=== PATIENT | female | born 1975 | race African-American/Black ===

== ENCOUNTER 2022-02-02 10:53 | Emergency (ER) | payer SELFPAY ==
[~2022-02-02] VITALS: Ht 157.5 cm; Wt 126.0 kg
[2022-02-02] MEDS ORDERED: PREDNISONE 20MG TABLET PO ONE (12:00)
[2022-02-02] MEDS ORDERED: ALBUTEROL (0.083%) 2.5MG/3ML NEB HHN ONE (12:00)
[2022-02-02] MEDS ORDERED: P50 MT (13:19)
[2022-02-02] MEDS ORDERED: ALBU18HF2 IH (13:20)
[2022-02-02] MEDS ORDERED: ALBU05 NEB (13:26)
[2022-02-02 14:10] VITALS: BP 120/72
== END 2022-02-02 14:30 | disposition home or self-care (01) ==
LOC: ER 10:53
DX: R05.9 Cough, unspecified (principal)
CPT/HCPCS: 71045; 94640; 99283; J7512; Z7610